=== PATIENT | female | born 1970 | race Caucasian/White ===

== ENCOUNTER → 2018-03-26 | Outpatient (CLI) | payer BC ==
[~2018-03-26] MED LIST: PREN0.01; TYLE325T PO
--- NOTE | 2018-03-27 15:28 | EKG ---
Date Performed: 03/26/2018 Time Performed: 12:53:45 PTAGE: 48 years EKG: Sinus rhythm LOW QRS VOLTAGE IN PRECORDIAL LEADS BORDERLINE ECG NO PREVIOUS TRACING DOCTOR: Kelly Young Interpretating Date/Time 03/27/2018 15:25:57
== END ==
LOC: CPRE 12:39
PROVIDERS: ATTEND Obstetrics & Gynecology
DX: Z01.810 Encounter for preprocedural cardiovascular examination (principal); R33.9 Retention of urine, unspecified; D25.9 Leiomyoma of uterus, unspecified; R94.31 Abnormal electrocardiogram [ECG] [EKG]
CPT/HCPCS: 93005

== ENCOUNTER 2018-03-28 08:24 | Observation (INO) | payer BC ==
--- NOTE | 2018-03-26 13:57 | MH ---
cc: Dennis Fregoso MD DATE OF ADMISSION: 03/28/2018 ADMITTING DIAGNOSIS: Urinary obstruction due to large uterine fibroids. HISTORY OF PRESENT ILLNESS: The patient is a 48-year-old white female, para 2-0-0-2, who developed acute urinary retention on 03/18/2018. Initial ER evaluation at the Urgent Center was thought to be a UTI. She was given Macrobid. She saw a replenisher on 03/21/2018. Ultrasound confirmed distended bladder with a fibroid and catheterization drained 1.3 liters of fluid. She was switched from Macrobid to Bactrim and bethanechol and continued to retain urine, required ER evaluation on the evening of 03/21/2018 at [facility] [place]. Catheterization resulted in 1400 mL of urine. A Puckett was left in place. A CT scan showed multiple large fibroids impacting urinary bladder with the largest being 10 x 9.4 x 9.4 cm. The ovaries appeared normal. She is now admitted for hysterectomy. PAST MEDICAL HISTORY: Previous surgery: None. MEDICATIONS: Bactrim. ALLERGIES: NONE. TRANSFUSIONS: None. OBSTETRIC HISTORY: Two vaginal deliveries. SOCIAL HISTORY: She is . She is an deputy county attorney. Alcohol: Occasional. Tobacco: None. Drugs: None. FAMILY HISTORY: Noncontributory. PHYSICAL EXAMINATION: GENERAL: A well-nourished, well-developed white female. VITAL SIGNS: Stable: HEENT: Normal. CHEST: Clear. HEART: Regular rate. BREASTS: Symmetrical. ABDOMEN: Benign. PELVIC: Vagina is normal. Cervix normal. Uterus is enlarged to about 16-week size, fibroids. Adnexa nonpalpable. ASSESSMENT: As above. PLAN: She is now admitted for laparoscopy, either a LASH, BS or a TIH, BS with ovarian sparing if possible. Surgical risks, benefits, complications including infection, injury, bleeding and different recovery times based on type of incision explained and accepted. If they are normal, she desires ovarian preservation, if they are not currently preserved, she understands the possibility of need to be removed. She would like to proceed. Dennis Fregoso MD JAW/TL , 01:30 PM , 01:56 PM
[~2018-03-28] VITALS: Ht 170.2 cm; Wt 72.6 kg
[~2018-03-28 08:24] MED LIST changes: -PREN0.01
[2018-03-28] MEDS ORDERED: METOPROLOL TARTRATE 25 MG TAB PO PRN (08:45)
[2018-03-28] MEDS ORDERED: POVIDONE IODINE 5% (ANTISEPSIS KIT) 4 APPLICATIONS EACH NARE PRN (08:45)
[2018-03-28] MEDS ORDERED: SODIUM CHLORID 0.9% 500 ML IV PRN (08:45)
[2018-03-28] MEDS ORDERED: CHLORHEXIDINE GLUCONATE 2 % 1 PACK (2 CLOTHS) TOPICAL PRN (08:45)
[2018-03-28] MEDS ORDERED: LACTATED RINGER'S 1000 ML IV PRN (08:45)
[2018-03-28] MEDS ORDERED: ceFAZolin 2 GM/DEX PREMIX 50 ML IV PRN (09:00)
[2018-03-28] MEDS ORDERED: ACETAMINOPHEN 1000 MG/100 ML 100 ML IV PRN (09:00)
[2018-03-28] MEDS ORDERED: METOCLOPRAMIDE HCL 10 MG/2 ML VIAL ONE (09:47)
[2018-03-28] MEDS ORDERED: APREPITANT 40 MG CAP ONE (09:48)
[2018-03-28] MEDS ORDERED: DEXAMETHASONE SOD PHOS 4 MG/ML VIAL ONE (09:48)
[2018-03-28] MEDS ORDERED: FAMOTIDINE 20 MG/2 ML VIAL ONE (09:48)
[2018-03-28] MEDS ORDERED: ONDANSETRON ODT 4 MG TAB ONE (09:51)
[2018-03-28] MEDS ORDERED: BUPIVACAINE LIPOSOME PF 1.3% 20 ML VIAL ONE (09:57)
[2018-03-28] MEDS ORDERED: MIDAZOLAM HCL 2 MG/2 ML VIAL ONE (10:00)
[2018-03-28] MEDS ORDERED: ZOLPIDEM TARTRATE 5 MG TAB PO PRN (12:30)
[2018-03-28] MEDS ORDERED: HYDROmorphone HCL PF 2 MG/ML VIAL IV PUSH PRN (12:30)
[2018-03-28] MEDS ORDERED: diphenhydrAMINE HCL 25 MG CAP PO PRN (12:30)
[2018-03-28] MEDS ORDERED: ONDANSETRON ODT 4 MG TAB PO PRN (12:30)
[2018-03-28] MEDS ORDERED: PROMETHAZINE INJ 25 MG/ML VIAL IM PRN (12:30)
[2018-03-28] MEDS: DOCUSATE SODIUM 100 MG CAP PO SCH (12:30)
[2018-03-28] MEDS: D5-1/2 NS + KCL 20 MEQ INJ 1,000 ML IV SCH ×2 (13:00→21:37)
[2018-03-28] MEDS ORDERED: *MEPERIDINE 25 MG INJ VIAL PERIprocedural Use ONLY ONE (13:01)
[2018-03-28] MEDS ORDERED: *morphine SULFATE 8 MG/ML PERIprocedure ONLY ONE (13:09)
--- NOTE | 2018-03-28 13:10 | MP ---
cc: Dennis Fregoso MD DATE OF OPERATION: PREOPERATIVE DIAGNOSIS: Large fibroids with urinary retention. POSTOPERATIVE DIAGNOSIS: Large fibroids with urinary retention. PROCEDURE PERFORMED: Laparoscopy, LASH with bilateral salpingectomy. TYPE OF ANESTHESIA: General, ET. SURGEON: Dennis Fregoso MD MANAGER POWER: Gloria Wallace. ESTIMATED BLOOD LOSS: About 200 mL FLUIDS: 1.2 liters crystalloid. OBJECTIVE FINDINGS: Following induction of adequate general endotracheal anesthesia, the patient was prepped and draped supine on the operating table in dorsal lithotomy position, usual sterile fashion, with the bladder being drained by a new Puckett catheter. Examination under anesthesia revealed 16-weeks size uterus with posterior fibroid. After the prepping and draping the abdomen was opened through a 0.5 cm supraumbilical incision. A 5 port was placed followed by the laparoscope attached to a video-cam. A second 5 left lower quadrant, and a third in right lower quadrant. This revealed a uterus about 16-weeks size, retroverted with a large posterior fibroid impinging on the sacrum. Additional 5 port was placed just above the left and just above the right lower ports to allow for additional instruments to elevate the uterus. It became clear that the cul-de-sacs were clear. Working first on the left, Harmonic scalpel was used to take the left uteroovarian pedicle, left round ligament, left broad ligament, left side of the bladder flap and the left uterine vessels. The same was done on the right side. Harmonic scalpel was now used to amputate the fundus from the cervix. The fundus was now placed in the pelvis. The scope was removed. The supraumbilical port was removed. The abdomen was opened through a 3 cm curving infraumbilical incision using the knife to cut down through skin to the fascia. The fascia opened transversely, stripped from the muscles, rectus muscle split in the midline and the peritoneum opened sharply. The GelPort was placed. Scope was now reinserted through the GelPort. A pouch was inserted and the fundus placed in the pouch. The pouch was exteriorized at the port site and uterus was morcellated by hand in the bag to ensure no spillage. When complete, the scope was reinserted and each tube remnant was taken with the Harmonic scalpel and extracted intact. Irrigation was performed and no bleeding was evident. Low pressure test revealed no bleeding. Ureters were inspected for good peristalsis bilateral. The operative site is now coated with Evicel. The GelPort is now removed and the wound closed with a running 2-0 Vicryl for the peritoneum, the fascia with a running locking 0 Vicryl corner to midline and tied, subcutaneous with running 3-0 Vicryl and the skin with a running 3-0 Monocryl subcuticular. The scope was now reinserted through the lower port sites to inspect the pelvis. There was no bleeding at the GelPort site with no entrapment. Scope was now removed. Gas allowed to escape. The small ports were removed and the wounds were closed with 3-0 Monocryl subcuticular. Dermabond applied. All counts were correct. The patient's legs were taken down from the stirrups. She was awakened and taken to the recovery room in good condition. MD AISHWARYA Gilbert/HENRRY , 12:48 PM , 01:09 PM LINDSEY
[2018-03-28] MEDS ORDERED: ACETAMINOPHEN 1000 MG/100 ML VIAL IV SCH (14:00)
[2018-03-28] MEDS ORDERED: KETOROLAC TROMETHAMINE 30 MG/ML (IVP) VIAL IVP SCH (14:00)
[2018-03-28 14:15] VITALS: BP 113/66; PULSE 70; RESP 18; TEMP 97.9; O2SAT 100
[2018-03-28 17:15] LABS: HEMATOCRIT 38.7 % (35.0-46.0); HEMOGLOBIN 13.1 GM/DL (11.6-15.3)
[2018-03-28] MEDS: ACETAMINOPHEN 1000 MG/100 ML VIAL IV SCH (17:35)
[2018-03-28] MEDS: KETOROLAC TROMETHAMINE 30 MG/ML (IVP) VIAL IVP SCH (19:05)
[2018-03-28 20:02] VITALS: BP 121/69; PULSE 72; RESP 18; TEMP 98.5
[2018-03-28 23:51] VITALS: BP 104/56; PULSE 66; RESP 17; TEMP 98.5
[2018-03-29] MEDS: DOCUSATE SODIUM 100 MG CAP PO SCH (00:20)
[2018-03-29] MEDS: KETOROLAC TROMETHAMINE 30 MG/ML (IVP) VIAL IVP SCH ×2 (00:20→05:39)
[2018-03-29] MEDS: ACETAMINOPHEN 1000 MG/100 ML VIAL IV SCH ×2 (03:06→10:11)
[2018-03-29 05:12] VITALS: BP 112/58; PULSE 81; RESP 18; TEMP 98.5
[2018-03-29 05:51] LABS: AUTOMATED NEUTROPHIL # 5.3 TH/MM3 (1.8-7.7); BASOPHIL % 0.4 % (0.0-2.0); EOSINOPHIL # 0.1 TH/MM3 (0-0.4); EOSINOPHIL % 0.7 % (0.0-4.0); HEMATOCRIT 36.3 % (35.0-46.0); MEAN CELL VOLUME 90.1 FL (80.0-100.0); MEAN CORPUSCULAR HEMOGLOBIN 29.9 PG (27.0-34.0); MEAN CORPUSCULAR HGB CONC 33.2 % (32.0-36.0); MEAN PLATELET VOLUME 8.8 FL (7.0-11.0); MONO % 10.4 % (0.0-8.0); MONOCYTE # 0.9 TH/MM3 (0-0.9); NEUT % 64.5 % (16.0-70.0); PLATELET COUNT 198 TH/MM3 (150-450); RED BLOOD COUNT 4.03 MIL/MM3 (4.00-5.30); RED CELL DISTRIBUTION WIDTH 14.4 % (11.6-17.2); WHITE BLOOD COUNT 8.3 TH/MM3 (4.0-11.0)
[2018-03-29 06:10] LABS: BICARBONATE 18.8 MEQ/L (21.0-32.0); CALCIUM 7.9 MG/DL (8.5-10.1); CREATININE 0.64 MG/DL (0.50-1.00)
[2018-03-29] MEDS: D5-1/2 NS + KCL 20 MEQ INJ 1,000 ML IV SCH (06:35)
[2018-03-29 08:00] VITALS: BP 115/65; PULSE 77; RESP 18; TEMP 97.8; O2SAT 100
--- NOTE | 2018-03-29 08:19 | HHI.DCPOC ---
Discharge Care Plan Report Symptoms to Your Doctor -Temperature above 100.5 degrees -Redness, of incision or excessive or foul smelling drainage -Unusual pain or calf pain -Increased vaginal bleeding -Painful or difficulty urinating -Feelings of extreme sadness or anxiety after 2 weeks Goals to Promote Your Health * To prevent worsening of your condition and complications * To maintain your health at the optimal level Directions to Meet Your Goals Take your medications as prescribed Follow your dietary instruction Follow activity as directed Ensure plenty of rest for recovery Drink fluids for hydration Keep your appointments as scheduled Take your immunizations and boosters as scheduled If your symptoms worsen call your PCP, if no PCP go to Urgent Care Center or Emergency Room Smoking is Dangerous to Your Health. Avoid second hand smoke Call the 24-hour crisis hotline for domestic abuse at Dennis Fregoso MD Mar 29, 2018 08:19
[2018-03-29] MEDS ORDERED: ACETAMINOPHEN/HYDROcodone 325 MG/5 MG TAB PO PRN (12:15)
== END 2018-03-29 12:06 | disposition home or self-care (01) ==
LOC: HSDC 08:24 → HSDI 12:28 → H1EA 13:55
PROVIDERS: ADMIT Obstetrics & Gynecology; ATTEND Obstetrics & Gynecology
DX: D25.9 Leiomyoma of uterus, unspecified (principal); N13.9 Obstructive and reflux uropathy, unspecified
CPT/HCPCS: 00840; 58544; 64488; 80048; 84702; 85014; 85018; 85025; 88307; 94150; 96361; 96374; 96375; 96376; C9290; G0378; J0131; J0690; J1100; J1885; J2175; J2250; J2270; J2765; J3010; J3480; J7120; J8501